=== PATIENT | female | born 1950 ===

== ENCOUNTER 2018-07-08 07:54 | Outpatient (CLI) | payer OTHER | END 2018-07-08 07:56 | disposition home or self-care (01) | LOC: SONOGRAMA 07:54 | DX: E04.2 Nontoxic multinodular goiter (principal) ==

== ENCOUNTER 2022-07-10 08:33 | Outpatient (CLI) | payer OTHER | END 2022-07-10 08:39 | disposition home or self-care (01) | LOC: SONOGRAMA 08:33 | PROVIDERS: ATTEND Pathology Anatomic Pathology & Clinical Pathology | DX: D34 Benign neoplasm of thyroid gland (principal); E04.9 Nontoxic goiter, unspecified ==

== ENCOUNTER 2024-06-07 08:56 | Outpatient (CLI) | payer OTHER ==
[2024-06-07 10:12] LABS: BILIRUBIN TOTAL 0.69 mg/dL (0.3-1.2); CALCIUM 9.5 mg/dL (8.5-10.1); CREATININE SERUM 0.76 mg/dL (0.55-1.02); GFR 75.02; GLOBULINA 3.8 G/DL (2.4-3.5); MAGNESIUM 2.4 mg/dL (1.8-2.4); PHOSPHOROUS 2.9 mg/dL (2.5-4.9); POTASSIUM 3.94 mEq/L (3.5-5.1); TOTAL PROTEIN 7.8 gm/dL (6.4-8.2)
[2024-06-08 15:10] LABS: CALCIUM IONIZED 5.1 mg/dL (4.5-5.6)
== END 2024-06-07 09:02 | disposition home or self-care (01) ==
LOC: LAB 08:56
PROVIDERS: ATTEND Orthopaedic Surgery
DX: E88.89 Other specified metabolic disorders (principal); E56.1 Deficiency of vitamin K; E21.3 Hyperparathyroidism, unspecified; M81.8 Other osteoporosis without current pathological fracture